=== PATIENT | male | born 1970 | race Caucasian/White ===

== ENCOUNTER 2021-05-30 12:44 | Emergency (ER) | payer MEDICAID | END 2021-05-30 14:12 | disposition home or self-care (01) | LOC: JP.ED 12:44 | DX: M72.2 Plantar fascial fibromatosis (principal); K21.9 Gastro-esophageal reflux disease without esophagitis; F17.210 Nicotine dependence, cigarettes, uncomplicated | CPT/HCPCS: 73630-26-RT; 73630-RT; 99283; 99283-25 ==